=== PATIENT | female | born 2000 | race Caucasian/White ===

== ENCOUNTER 2021-11-23 04:31 | Inpatient (IN) | payer OTHER ==
[~2021-11-23] VITALS: Ht 149.9 cm; Wt 66.2 kg
[2021-11-23 04:37] VITALS: BP 162/66
[2021-11-23 04:54] LABS: URINE BILIRUBIN NEGATIVE (Negative); URINE BLOOD NEGATIVE (Negative); URINE CLARITY CLOUDY; URINE COLOR YELLOW; URINE GLUCOSE-RANDOM* NEGATIVE (Negative); URINE KETONES NEGATIVE (Negative); URINE LEUKOCYTES-REFLEX TRACE (Negative); URINE NITRITE-REFLEX NEGATIVE (Negative); URINE PROTEIN (DIPSTICK) NEGATIVE (Negative); URINE SPECIFIC GRAVITY 1.015 (1.005-1.035)
[2021-11-23 05:13] LABS: ABSOLUTE NEUTROPHILS 10.3 thou/uL (1.4-8.2); BASOPHILS 0.7 % (0.0-2.0); EOSINOPHILS 2.5 % (0.0-3.0); HEMATOCRIT 44.1 % (37.0-47.0); HEMOGLOBIN 15.2 gm/dL (12.0-15.0); LYMPHOCYTES 18.3 % (24.0-44.0); MCH 31.1 pg (26.0-34.0); MCHC 34.4 g/dL (28.0-37.0); MCV 90.5 fL (80.0-100.0); MONOCYTES 5.2 % (1.0-8.0); PLATELET COUNT 454 thou/uL (150-400); POLYS 73.3 % (36.0-66.0); RBC 4.87 mil/uL (4.20-5.00); RDW 12.8 % (10.5-14.5); WBC 14.1 thou/uL (4.0-11.0)
[2021-11-23 05:18] LABS: CREATININE 0.8 mg/dL (0.6-1.0); POTASSIUM 3.7 mmol/L (3.5-5.1)
[2021-11-23 05:24] LABS: ALBUMIN 3.3 g/dL (3.4-5.0); DIRECT BILIRUBIN 0.5 mg/dL (<0.1-0.2); TOTAL BILIRUBIN 0.9 mg/dL (0.2-1.0); TOTAL PROTEIN 7.2 g/dL (6.4-8.2)
--- NOTE | 2021-11-23 05:52 | NUR ---
DR NUNEZ REASSESS PATIENT PAIN IS IMPROVED WITH MORPHINE IS AT BEDSIDE
--- NOTE | 2021-11-23 05:53 | NUR ---
LACTIC ACID IS DRAWN AND SENT TO LAB PER MD ORDER
--- NOTE | 2021-11-23 06:08 | NUR ---
PATIENT IS ADVISED TO REMAIN NPO SHE VERBALIZES UNDERSTANDING
--- NOTE | 2021-11-23 06:10 | NUR ---
HAS BEEN NPO SINCE 11/22/21 @2300 HRS
[2021-11-23 07:26] VITALS: BP 137/79
--- NOTE | 2021-11-23 14:10 | NUR ---
PT LEAVING WITH SURGICAL STAFF FOR ENDOOSCOPY AT THIS TIME. PT COMING BACK FROM OR AFTER PROCEDURE
--- NOTE | 2021-11-23 16:41 | NUR ---
PT BACK FROM OR
[2021-11-23 17:19] VITALS: BP 146/89
[2021-11-23 17:25] VITALS: BP 139/83
[2021-11-23 17:52] VITALS: BP 183/84
[2021-11-23 19:40] VITALS: BP 138/68
--- NOTE | 2021-11-24 01:37 | NUR ---
PT RESTING IN NO ACUTE DISTRESS.ADMITTED TO THE FLOOR WITH ABDOMINAL PAIN/GALLSTONES.PT VSS.NPO AT THIS TIME FOR PROCEDURE THIS AM.ADMISSION ASSESSMENT COMPLETED DOCUMENTED.PAIN CONTROLLED WITH PRN MEDS.WILL CONT WITH POC.
[2021-11-24 05:33] VITALS: BP 129/63
[2021-11-24 06:27] LABS: HEMATOCRIT 41.9 % (37.0-47.0); HEMOGLOBIN 14.2 gm/dL (12.0-15.0); MCH 30.9 pg (26.0-34.0); MCHC 33.8 g/dL (28.0-37.0); MCV 91.5 fL (80.0-100.0); RBC 4.58 mil/uL (4.20-5.00); RDW 12.6 % (10.5-14.5); WBC 15.5 thou/uL (4.0-11.0)
[2021-11-24 06:48] LABS: CALCIUM 8.5 mg/dL (8.5-10.1); CREATININE 0.7 mg/dL (0.6-1.0); POTASSIUM 3.4 mmol/L (3.5-5.1); TOTAL BILIRUBIN 1.2 mg/dL (0.2-1.0); TOTAL PROTEIN 6.7 g/dL (6.4-8.2)
[2021-11-24 10:02] VITALS: BP 121/56
[2021-11-24 12:45] VITALS: BP 138/59
--- NOTE | 2021-11-24 16:10 | NUR ---
PT ADMITTED RELATED TO CHOLEDOCHOLITHIASIS. CM REVIEWED CHART AND SPOKE WITH CARE TEAM. CM MET WITH PT AT [facility] THIS DAY. PT APPEARED TO BE A&O X4. CM ROLE INTRODUCED. PT INDICATED THAT SHE LIVES IN A HOUSE WITH HER MOM, BABY, AND BF ON AND OFF. SHE INDICATED THAT THERE AREN'T ANY STEPS TO ENTER AND NO STEPS INSIDE. PT INDICATED SHE HAD BEEN INDEPENDENT WITH GAIT AND [employer] MANA[employer]. PT INDICATED SHE PLANS TO RETURN HOME ONCE MEDICALLY STABLE. PT HAD LAP [place] THIS DAY. PT'S PCP IS DR. MURALI MORRIS. NO NEEDS ANTICIPATED UPON DC. CM FOLLOWING SHOULD ANY NEEDS ARISE.
[2021-11-24 16:46] VITALS: BP 138/74
[2021-11-24 19:28] VITALS: BP 130/60
[2021-11-25 03:15] LABS: HEMATOCRIT 37.5 % (37.0-47.0); HEMOGLOBIN 12.5 gm/dL (12.0-15.0); MCH 30.9 pg (26.0-34.0); MCHC 33.3 g/dL (28.0-37.0); MCV 92.8 fL (80.0-100.0); RBC 4.05 mil/uL (4.20-5.00); RDW 12.7 % (10.5-14.5); WBC 14.3 thou/uL (4.0-11.0)
[2021-11-25 04:13] LABS: ALBUMIN 2.7 g/dL (3.4-5.0); CREATININE 0.8 mg/dL (0.6-1.0); PHOSPHORUS 2.4 mg/dL (2.5-4.9); POTASSIUM 3.3 mmol/L (3.5-5.1)
--- NOTE | 2021-11-25 05:27 | NUR ---
PATIENT AOX4 MAKES NEEDS KNOWN.PATIENT HAS 4 LAB SITE C/D/I. PATIENT ENCOURAGED TO AMBULATE IN THE UNIT. SCD ON. PATIENT ATE AND TOLERATED FOOD WELL. PAIN CONTROLLED THIS SHIFT. PATIENT IS UP AT ILIR. PATIENT IN BED ASLEEP AT THIS TIME BREATHING REGULAR AND UNLABOURED.
[2021-11-25 05:55] VITALS: BP 122/69
[2021-11-25 07:08] VITALS: BP 124/68
--- NOTE | 2021-11-25 08:15 | P ---
[facility] [place] [address] PROCEDURE REPORT Name: RAYMOND RANGEL Room #: 458-P ADM IN M.R.#: [id number] Admission: 11/23/21 Attend Phys: Marcos Rahman, Discharge: Date of : 00 Report #: [id number] THIS REPORT FOR: cc: MURALI MORRIS MD Physician not on staff Bryon Loredo MD ~ cc: Marcos Rahman MD DATE OF SERVICE: 11/23/2021 PROCEDURE PERFORMED: ERCP with sphincterotomy and stone removal. HISTORY OF PRESENT ILLNESS: The patient is a 21-year-old female with right upper quadrant abdominal pain starting approximately 3 days ago. She was noted to have elevated liver function tests. She has also had nausea and vomiting. She denies any fevers or chills. Labs on admission showed a white count of 14.1, hemoglobin 15.2, platelet count 454, total bilirubin 0.9, AST 140, ALT 119, alkaline phosphatase 227, lipase 102. test was negative. She underwent an ultrasound of the abdomen this morning and showed normal liver. Cholelithiasis was demonstrated in the gallbladder without definite gallbladder wall thickening or fluid. She was tender to palpation. Minimal intrahepatic ductal dilation is present; however, there is enlargement of the common bile duct with a stone in the common bile duct measuring approximately 6 mm, causing enlargement of the duct. Common bile duct is 8 mm in size. The pancreas was remarkable that was visualized. Plan is to proceed with ERCP. DESCRIPTION OF PROCEDURE: The risks and benefits of the procedure were explained to the patient, those risks including but not limited to bleeding, perforation and the risk of sedation as well as the potential risk for post-ERCP pancreatitis. The patient understood these risks and gave informed consent. The procedure was performed in the operating room under general anesthesia. The patient is already on IV Zosyn at this time. She was also given 50 mg indomethacin rectal suppository prior to the procedure. Next, using an Olympus side-viewing ERCP scope, the scope was placed in the patient's mouth and advanced under direct vision through the esophagus, stomach and into the second portion of the duodenum, at which point, the major papilla was identified and normal in appearance. Next, using a Juan Manuel-Cook 0.025 dome tipped sphincterotome, the common bile duct was cannulated and a cholangiogram was obtained. A single filling defect was noted within the common bile duct, which was dilated to approximately 8 mm. Intrahepatic appeared normal. The cystic duct and gallbladder did not fill with contrast. At this point, a guidewire was advanced into the intrahepatic ducts. Next, a sphincterotomy was performed without difficulty. The sphincterotome was removed and a balloon catheter was then advanced over a guidewire above the stone. Next several balloon sweeps were performed. The stone was removed in 2 pieces, broke apart. Further balloon sweep showed no further stones or debris. A balloon occlusion cholangiogram at [address] [address] PROCEDURE REPORT Name: RAYMOND RANGEL Room #: 458-P [facility] IN M.R.#: [id number] Admission: 11/23/21 Attend Phys: Marcos Rahman, Discharge: Date of : 00 Report #: [id number] this point showed no further filling defects. At this point, the wire and the balloon catheter were removed. The scope was then withdrawn and the procedure terminated. The patient tolerated the procedure well. IMPRESSION: 1. Common bile duct stones, status post sphincterotomy with stone removal via balloon catheter. 2. Mildly dilated common bile duct. 3. Cystic duct and gallbladder did not fill with contrast. RECOMMENDATIONS: 1. Observe the patient post-procedure. 2. Repeat liver function test in the morning. 3. Continue IV antibiotics. 4. Plan is for laparoscopic cholecystectomy tomorrow. Thank you for allowing me to participate in her care. <ELECTRONICALLY SIGNED> By: Bryon Loredo MD 11/25/21 0815 1506 0026 Bryon Loredo MD /nt
[2021-11-25 09:00] VITALS: BP 124/68
[2021-11-25] MEDS ORDERED: IBUPROFEN 200200 M1 PO (10:28)
[2021-11-25] MEDS ORDERED: TRAMADOL 50 MG50 MG PO ×2 (10:30→16:47)
[2021-11-25] MEDS ORDERED: COLACE100 MG PO (10:30)
[2021-11-25] MEDS ORDERED: ACETAMINOPHEN325 M1 PO (10:30)
[2021-11-25] MEDS ORDERED: MIRALAX17 GM PO (10:31)
[2021-11-25 10:47] VITALS: BP 124/68
--- NOTE | 2021-11-25 11:26 | NUR ---
CARE TEAM INDICATED THAT PT IS MEDICALLY STABLE TO DC HOME THIS DAY. PT TO DC HOME TO SELF CARE. NO OTHER CM INTERVENTION INDICATED. CASE CLOSED.
--- NOTE | 2021-11-26 15:07 | PATH ---
[facility] [address] [place] [address] PATHOLOGY RPT PROCEDURE Name: RAYMOND RANGEL Room #: 458-P [facility] IN M.R.#: [id number] Admission: 11/23/21 Date of : 00 Discharge: 11/25/21 Report #: [id number] Path Case #: [id number] [facility] Accession Number: [id number] . 01 Material submitted: . gallbladder - GALLBLADDER . 01 Clinical history: . LAPAROSCOPIC CHOLECYSTECTOMY SYMPTOMATIC CHOLECYSTECTOMY . 02 Diagnosis: Gallbladder, cholecystectomy: - Subacute cholecystitis with cholelithiasis. (ANK:chanell; 11/26/2021) [facility] 11/26/2021 1034 Local . 02 Electronically signed: . Chanel Kramer MD, Pathologist NPI- [id number] . 01 Gross description: . Fixative: Formalin Labeled: Gallbladder Specimen received: An intact gallbladder Dimensions: 6.9 x 2.6 x 2.2 cm Lymph node: None Serosa: Dawson, focally hemorrhagic and dusky Calculi: Contains multiple awad multifaceted choleliths (4.7 x 4.5 x 1.2 cm in aggregate) Mucosa: Valdez-green and velvety without awad stippling Average wall thickness: 0.2 cm Abnormalities: None A1: Gallbladder, represented ([place]; 11/25/2021) DKA/DKA 11/25/2021 1120 Local . 02 Pathologist provided ICD-10: K80.00 . 02 CPT . 632635 Specimen Comment: A courtesy copy of this report has been sent to [phone], [phone] Specimen Comment: [phone] Specimen Comment: Report sent to , DR RIVERA / DR MORRIS Performed at: [address] [address] PATHOLOGY RPT PROCEDURE Name: CECIILACOLUMBARAYMOND VILLAR Room #: 458-P [facility] IN .R.#: [id number] Admission: 11/23/21 Date of : 00 Discharge: 11/25/21 Report #: [id number] Path Case #: [id number] [address] [id number] MD Maverick Art MD Phone: [phone] Performed at: [address] [id number] MD Chanel Kramer MD Phone: [phone]
== END 2021-11-25 15:45 | disposition home or self-care (01) | DRG 418 ==
LOC: ER 04:31 → 4W 06:22 → EROBS 06:22 → 4W 17:33
PROVIDERS: Nurse Practitioner; Student in an Organized Health Care Education/Training Program; Surgery; ADMIT Surgery; ATTEND Surgery
PROC: 0FC98ZZ Extirpation of Matter from Common Bile Duct, Via Natural or Artificial Opening Endoscopic (ICD-10-PCS; 2021-11-23)
PROC: 0FT44ZZ Resection of Gallbladder, Percutaneous Endoscopic Approach (ICD-10-PCS; principal; 2021-11-24)
DX: K80.20 Calculus of gallbladder without cholecystitis without obstruction (principal); K83.09 Other cholangitis; Z20.822 Contact with and (suspected) exposure to COVID-19; Z88.1 Allergy status to other antibiotic agents; Z88.8 Allergy status to other drugs, medicaments and biological substances; Z95.2 Presence of prosthetic heart valve
CPT/HCPCS: 10040; 50010; 50101; 50411; 50555; 51297; 52265; 52266; 53307; 53310; 53312; 54022; 54118; 55245; 56462; 56525; 56526; 58574; 58910; 62110; 62900; 70005